=== PATIENT | female | born 1975 | race Caucasian/White ===

== ENCOUNTER 2020-01-05 11:57 | Emergency (ER) | payer MEDICAID, SELFPAY ==
[2020-01-05] VITALS (7 sets, daily range): BP systolic 143–168; BP diastolic 92–112; PULSE 82–94; RESP 16–27; TEMP 36.7; O2SAT 94–97; BMI 36.2
--- NOTE | 2020-01-05 12:12 | ECG_ITS ---
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 Measurements Intervals [place] Rate: 85 P: 43 OR: 160 QRS: -59 QRSD: 145 T: 183 QT: 393 QTc: 468 Interpretive Statements SINUS RHYTHM POSSIBLE LEFT ATRIAL ENLARGEMENT [-0.1mV P WAVE IN V1/V2] LEFT AXIS DEVIATION [QRS AXIS < -30] RIGHT BUNDLE BRANCH BLOCK [120+ ms QRS DURATION, UPRIGHT V1, 40+ ms S IN I/aVL/V4/V5/V6] MODERATE T-WAVE ABNORMALITY, CONSIDER ANTEROLATERAL ISCHEMIA [-0.1+ mV T WAVE IN V3-V6] MODERATE T-WAVE ABNORMALITY, CONSIDER INFERIOR ISCHEMIA [-0.1+ mV T WAVE IN II/aVF] Compared to ECG 10/24/2018 16:19:23 Left-axis deviation now present T-wave abnormality now present Electronically Signed On 01-05-2020 16:06:37 CDT by Garrison Alanis M.D. [id number] f
--- NOTE | 2020-01-05 12:12 | XR_ITS ---
WS: [id number] Portable AP upright chest, 01/05/2020 Clinical Data: chest pain Comparison: Portable chest, 10/24/2018. Findings: No nodules, masses or effusions are seen. The heart is enlarged. The pulmonary vascularity is not increased. No pneumonia or pneumothorax is seen. The right diaphragm is elevated. XR/XR chest 1V portable [id number] Impression: Cardiomegaly.
--- NOTE | 2020-01-05 12:16 | W.ED.CHESTPA ---
HPI - Chest Pain General: Chief Complaint: Chest Pain Stated Complaint: chest pain Time Seen by Provider: 01/05/20 11:58 History of Present Illness: HPI narrative: 44-year-old male presents emergency room complaining of chest pain complains of left upper chest pain is been hurting for last 2 days. She has some nausea and couple episodes of vomiting and some dizziness associated with it no loss of consciousness. Does radiate up into her neck she denies any shortness of breath associated with it she is not noticed any exacerbating or relieving aspects of it. She went in and seen her primary care doctor today and they referred her to the emergency room. MD complaint: chest pain Onset (ago): day(s) (2) Timing of current episode: episodic and still present Prior episodes: Yes Onset: during rest Pain location: left chest Pain radiation: neck Severity: moderate Quality: tightness and aching Relieving factors: nothing Exacerbating factors: nothing Associated symptoms: Reports nausea and vomiting; Deny abdominal pain, diaphoresis, dyspnea, leg edema, palpitations, sense of impending doom, syncope or other Treatment prior to arrival: none Review of Systems Const: Denies: diaphoresis ENMT: Denies: throat pain, ear or mastoid pain, nasal discharge or nasal congestion Card: Denies: palpitations or syncope Resp: Denies: dyspnea GI: Reports: nausea and vomiting; Denies: abdominal pain : Denies: flank pain, difficulty voiding, dysuria, urinary frequency or urinary urgency Skin/Breast: Denies: rash or pruritus PFSH ED PFSH: Medical History (Updated 01/05/20 @ 14:44 by Markel Jimenez DO) Diabetes mellitus Hypertension Surgical History (Updated 01/05/20 @ 12:19 by Markel Jimenez DO) H/O dilation and curettage History of removal of laparoscopic gastric banding device Hx of laparoscopic adjustable gastric banding Previous section Social History (Updated 01/05/20 @ 12:20 by Markel Jimenez DO) Smoking and tobacco status: never smoked Alcohol intake: never Physical Exam Const: COMMON NORMALS: no acute distress GENERAL APPEARANCE: cooperative and comfortable ORIENTATION/CONSCIOUSNESS: Yes awake, Yes oriented to person, Yes oriented to place and Yes oriented to time HENMT: COMMON NORMALS: normocephalic, atraumatic and hearing grossly normal bilaterally HEAD & SCALP: normocephalic and atraumatic Eye: COMMON NORMALS: Equal, round and reactive pupils present, EOMs intact bilaterally, conjunctivae normal and no scleral icterus CONJUNCTIVA: Yes conjunctivae normal PUPIL: Yes Equal, round and reactive pupils present Neck/C-Spine: COMMON NORMALS: full ROM, no lymphadenopathy, supple and no JVD Lymph: LYMPHATIC: no lymphadenopathy noted and no lymphedema noted Chest: CHEST: Yes tenderness (Chest pain reproducible along the sternal borders) Resp: COMMON NORMALS: normal respiratory effort, No retractions, No use of accessory muscles and clear to auscultation bilaterally AUSCULTATION: clear to auscultation bilaterally Cardio: COMMON NORMALS: no JVD, regular rate, regular rhythm and No murmurs present (Cardio) RATE: regular rate RHYTHM: regular rhythm GI: COMMON NORMALS: Soft to palpation and No hepatosplenomegaly present AUSCULTATION: Yes normoactive bowel sounds PALPATION: Yes Soft to palpation, No Tenderness to palpation present (GI), No Guarding due to palpation present (GI) and Yes No hepatosplenomegaly present Extremity: COMMON NORMALS: normal to inspection, capillary refill normal, no clubbing, cyanosis or edema, no calf tenderness and no pedal edema Neuro: SENSORIUM/ORIENTATION: Yes oriented to person, Yes oriented to place and Yes oriented to time Skin: COMMON NORMALS: no rashes or lesions noted GENERAL SKIN EXAM: no rashes or lesions noted Course Vital Signs: Vital signs: Vital Signs Temperature 98.1 F 01/05/20 11:59 Pulse Rate 94 01/05/20 15:13 Respiratory Rate 17 01/05/20 15:13 Blood Pressure 164/110 01/05/20 15:13 Pulse Oximetry 97 01/05/20 15:13 MDM - Chest Pain MDM Narrative: Medical decision making narrative: Chest pain is reproducible with change in position and palpation we will go ahead and discharge her home set up for outpatient stress test asked her to take aspirin daily if she has recurrent symptoms return to the emergency room Lab Data: Labs: Lab Results 01/05/20 01/05/20 01/05/20 Range/Units 12:17 12:17 12:17 WBC 8.2 (4.0-10.0) 10^3/ uL RBC 4.93 (4.1-5.3) 10^6/u L Hgb 15.0 (11.5-15.3) g/dL Hct 45.9 (37.0-47.0) % MCV 93.1 (81-99) fL MCH 30.4 (28.0-34.0) pg MCHC 32.7 (30.0-36.0) g/dL RDW 11.8 L (12.1-15.1) % Plt Count 279 (130-400) 10^3/c mm MPV 9.9 (7.4-10.4) fL Neut % (Auto) 62.1 % Lymph % (Auto) 30.4 % [place] % (Auto) 5.4 % Eos % (Auto) 0.9 % Baso % (Auto) 0.7 % Neut # (Auto) 5.07 (1.8-7.7) 10^3/u L Lymph # (Auto) 2.5 (0.8-4.8) 10^3/u L [place] # (Auto) 0.4 (0.2-0.9) 10^3/u L Eos # (Auto) 0.1 (0.0-0.8) 10^3/u L Baso # (Auto) 0.1 (0.0-0.1) 10^3/u L Nucleated RBC % (a uto) 0 % Nucleated RBCs # 0.0 /100WBC Sodium 134 L (136-145) mmol/L Potassium 4.8 (3.5-5.1) mmol/L Chloride 96 L (98-107) mmol/L Carbon Dioxide 30 H (22-29) mmol/L Anion Gap 12.8 (5-19) BUN 7 (6-20) mg/dL Creatinine 0.6 (0.5-0.9) mg/dL GFR Calculation 109.6 (90-130) mL/min Glucose 358 H (65-115) mg/dL POC Glucose (70-110) mg/dL Calculated Osmolal ity 288 (285-295) mOsm/k g Calcium 8.8 (8.5-10.5) mg/dL Total Bilirubin 0.2 (0.15-1.2) mg/dL AST 13 (0-32) U/L ALT 23 (0-33) U/L Alkaline Phosphata se 68 (35-105) IU/L Troponin T Baselin e 8 (0-10) ng/L Troponin T 120 Min [place] (0-10) ng/L Delta Troponin T (0-10) ABS# Total Protein 6.1 L (6.6-8.7) g/dL Albumin 3.4 L (3.5-5.2) g/dL Globulin 2.7 (1.3-4.6) g/dL 01/05/20 01/05/20 Range/Units 14:15 14:19 WBC (4.0-10.0) 10^3/ uL RBC (4.1-5.3) 10^6/u L Hgb (11.5-15.3) g/dL Hct (37.0-47.0) % MCV (81-99) fL MCH (28.0-34.0) pg MCHC (30.0-36.0) g/dL RDW (12.1-15.1) % Plt Count (130-400) 10^3/c mm MPV (7.4-10.4) fL Neut % (Auto) % Lymph % (Auto) % [place] % (Auto) % Eos % (Auto) % Baso % (Auto) % Neut # (Auto) (1.8-7.7) 10^3/u L Lymph # (Auto) (0.8-4.8) 10^3/u L [place] # (Auto) (0.2-0.9) 10^3/u L Eos # (Auto) (0.0-0.8) 10^3/u L Baso # (Auto) (0.0-0.1) 10^3/u L Nucleated RBC % (a uto) % Nucleated RBCs # /100WBC Sodium (136-145) mmol/L Potassium (3.5-5.1) mmol/L Chloride (98-107) mmol/L Carbon Dioxide (22-29) mmol/L Anion Gap (5-19) BUN (6-20) mg/dL Creatinine (0.5-0.9) mg/dL GFR Calculation (90-130) mL/min Glucose (65-115) mg/dL POC Glucose 301 (70-110) mg/dL Calculated Osmolal ity (285-295) mOsm/k g Calcium (8.5-10.5) mg/dL Total Bilirubin (0.15-1.2) mg/dL AST (0-32) U/L ALT (0-33) U/L Alkaline Phosphata se (35-105) IU/L Troponin T Baselin e (0-10) ng/L Troponin T 120 Min [place] 9.47 (0-10) ng/L Delta Troponin T 1.47 (0-10) ABS# Total Protein (6.6-8.7) g/dL Albumin (3.5-5.2) g/dL Globulin (1.3-4.6) g/dL Discharge Plan Discharge Patient Disposition: Home Clinical Impression: Atypical chest pain Condition: Stable Prescriptions: New aspirin 81 mg tablet,chewable 81 mg PO DAILY Qty: 30 RF: 0 No Action ibuprofen 800 mg tablet 800 mg PO BID PRN (Reason: Pain) RF: 0 sulfamethoxazole-trimethoprim 800-160 mg tablet 1 tab PO BID RF: 0 spironolactone 25 mg tablet 25 mg PO DAILY RF: 0 lisinopril 10 mg tablet 10 mg PO DAILY RF: 0 omeprazole 20 mg capsule,delayed release(DR/EC) 20 mg PO DAILY RF: 0 buspirone 15 mg tablet 15 mg PO TID PRN (Reason: Anxiety) RF: 0 metformin 750 mg tablet extended release 24 hr 750 mg PO BID RF: 0 Viibryd 40 mg tablet 10 mg PO DAILY RF: 0 Farxiga 10 mg tablet 10 mg PO DAILY RF: 0 Discharge Orders: Discharge Order (Routine); Ordered 01/05/20 Ordered By: Markel Jimenez Referrals: Yaa Reed DO [Primary Care Provider] - Discharge Diet: Usual diet Discharge Activity: Limit activity as instructed Activity Restrictions/Additional Instructions: His management will call to set up a sestamibi stress test Discharge Date/Time: 01/05/20 15:14 Coding Level of Care Code ED Loom Tuner for Nu Fwd Exam Comprehensive
[2020-01-05 12:27] LABS: Basophils # 0.1 10^3/uL (0.0-0.1); Basophils % 0.7 %; Eosinophils # 0.1 10^3/uL (0.0-0.8); Eosinophils % 0.9 %; Hematocrit 45.9 % (37.0-47.0); Lymphocytes # 2.5 10^3/uL (0.8-4.8); Lymphocytes % 30.4 %; Mean Corpuscular HGB Conc 32.7 g/dL (30.0-36.0); Mean Corpuscular Hemoglobin 30.4 pg (28.0-34.0); Mean Corpuscular Volume 93.1 fL (81-99); Mean Platelet Volume 9.9 fL (7.4-10.4); Monocytes # 0.4 10^3/uL (0.2-0.9); Monocytes % 5.4 %; Neutrophils # 5.07 10^3/uL (1.8-7.7); Neutrophils % 62.1 %; Nucleated Red Blood Cells % 0 %; Platelet Count 279 10^3/cmm (130-400); Red Blood Count 4.93 10^6/uL (4.1-5.3); Red Cell Distribution Width 11.8 % (12.1-15.1); White Blood Count 8.2 10^3/uL (4.0-10.0)
[2020-01-05 12:47] LABS: Alanine Aminotransferase 23 U/L (0-33); Albumin Level 3.4 g/dL (3.5-5.2); Alkaline Phosphatase 68 IU/L (35-105); Aspartate Amino Transferase 13 U/L (0-32); Blood Urea Nitrogen 7 mg/dL (6-20); Calcium 8.8 mg/dL (8.5-10.5); Carbon Dioxide 30 mmol/L (22-29); Chloride 96 mmol/L (98-107); Globulin 2.7 g/dL (1.3-4.6); Glomerular Filtration Rate 109.6 mL/min (90-130); Glucose 358 mg/dL (65-115); Osmolality Calculated 288 mOsm/kg (285-295); Sodium 134 mmol/L (136-145); Total Bilirubin 0.2 mg/dL (0.15-1.2); Total Protein 6.1 g/dL (6.6-8.7)
[2020-01-05 12:48] LABS: Troponin(5th) Baseline 8 ng/L (0-10)
[2020-01-05 12:54] LABS: Anion Gap 12.8 (5-19); Potassium 4.8 mmol/L (3.5-5.1)
--- NOTE | 2020-01-05 14:12 | ECG_ITS ---
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 Measurements Intervals [place] Rate: 75 P: 55 [place]: 160 QRS: -56 QRSD: 147 T: 192 QT: 440 QTc: 493 Interpretive Statements SINUS RHYTHM LEFT AXIS DEVIATION [QRS AXIS < -30] RIGHT BUNDLE BRANCH BLOCK [120+ ms QRS DURATION, UPRIGHT V1, 40+ ms S IN I/aVL/V4/V5/V6] MODERATE T-WAVE ABNORMALITY, CONSIDER LATERAL ISCHEMIA [-0.1+ mV T WAVE IN I/aVL/V5/V6] MODERATE T-WAVE ABNORMALITY, CONSIDER INFERIOR ISCHEMIA [-0.1+ mV T WAVE IN II/aVF] Compared to ECG 01/05/2020 12:03:33 No significant changes Electronically Signed On 01-05-2020 16:26:28 CDT by Garrison Alanis M.D. [id number] jain
[2020-01-05 14:24] LABS: Glucose Point of Care 301 mg/dL (70-110)
[2020-01-05 14:42] LABS: Troponin 5 2HR 9.47 ng/L (0-10); Troponin 5 2HR Delta 1.47 ABS# (0-10)
--- NOTE | 2020-01-05 17:38 | PC.NURSE ---
Read and agree with assessment.
--- NOTE | 2020-01-06 13:20 | DCPLANNER ---
major account manager had message to schedule an outpatient stress test for patient. major account manager faxed order to centralized scheduling. major account manager will call for appointment information.
--- NOTE | 2020-01-20 14:01 | DCPLANNER ---
Patient has a outpatient stress test scheduled for Monday, February 03, 2020 at 10:45, centralized scheduling will call patient with appointment information.
--- NOTE | 2020-02-07 15:33 | DCPLANNER ---
Patient had a follow up appointment scheduled for 02.03.20 - patient did not attend appointment.
== END 2020-01-05 15:14 | disposition home or self-care (01) ==
PROVIDERS: Emergency Provider Family Medicine; PCP Family Medicine
DX: R07.89 Other chest pain (principal); E11.9 Type 2 diabetes mellitus without complications; I10 Essential (primary) hypertension
CPT/HCPCS: 12345; 36415; 36416; 71045; 80053; 82962; 84484; 85025; 93005; 99283; 99284

== ENCOUNTER 2020-08-24 16:40 | Emergency (ER) | payer MEDICAID, SELFPAY ==
[2020-08-24 16:57] VITALS: BP 202/113; PULSE 93; RESP 18; TEMP 36.6; O2SAT 98; BMI 32.1
--- NOTE | 2020-08-24 18:00 | W.ED.GENADLT ---
HPI - General Adult General: Chief complaint: General Medical Stated complaint: HIGH BS/ HIGH BP Time Seen by Provider: 08/24/20 18:00 Source: patient Mode of arrival: ambulatory Limitations: no limitations History of Present Illness: HPI narrative: Patient is a 45-year-old female who presents to ED today with multiple medical complaints. Patient tells me she initially went to her PCP office today for complaints of possible yeast infection. She tells me she is having vaginal itching and burning (at some point she states she was given antibiotics for some sort of infection (she thinks BV) but her Medicaid wouldn't cover so she never filled them). She states there is a concern for STDs as she has had at least 3 new sexual partners over the past month or so. She tells me when she got to their office they checked her blood sugar which was over 400 and her BP was 230s/100s so she was sent to the ED for further evaluation. Upon my exam patient complains of having chest pain over the past few days. She tells me she has not been taking any of her blood pressure diabetic medications because I forget . Patient is a methamphetamine user. She seems very disinterested in being in the ED. She lays in bed with her eyes closed looking away from me. She gives very vague answers to the majority of my questions. Onset (ago): unknown Associated symptoms: Reports chest pain; Deny confusion, dyspnea, headache(s), malaise, nausea, rash, palpitations, syncope or vomiting Review of Systems Const: Denies: fever(s), chills, body aches, fatigue or malaise Eyes: Denies: change in vision Card: Reports: chest pain; Denies: palpitations, irregular heart rhythm, edema, swelling of feet/ankles, lightheadedness, syncope, pre-syncope, dyspnea on exertion, orthopnea or leg pain with exertion Resp: Denies: dyspnea, productive cough or chest congestion GI: Denies: abdominal pain, nausea, vomiting or diarrhea : Reports: genital pruritis and vaginal odor; Denies: flank pain, difficulty voiding, dysuria, urinary frequency, urinary urgency, urinary hesitancy, hematuria, genital lesions, vaginal bleeding or vaginal discharge Musc: Denies: neck pain or back pain Skin/Breast: Denies: rash Neuro: Denies: headache(s), numbness in extremities, weakness in extremities, sensory changes, dizziness or confusion PFS ED PFSH: Medical History (Updated 08/24/20 @ 22:44 by CHAD Fernandez) Diabetes mellitus Hypertension Surgical History (Updated 01/05/20 @ 12:19 by Markel Jimenez DO) H/O dilation and curettage History of removal of laparoscopic gastric banding device Hx of laparoscopic adjustable gastric banding Previous section Social History (Updated 01/05/20 @ 12:20 by Markel Jimenez DO) Smoking and tobacco status: never smoked Alcohol intake: never Physical Exam Const: COMMON NORMALS: no acute distress, patient oriented x3, no limitations and alert GENERAL APPEARANCE: cooperative and disheveled ORIENTATION/CONSCIOUSNESS: Yes awake, Yes oriented to person, Yes oriented to place and Yes oriented to time HENMT: COMMON NORMALS: normocephalic and atraumatic HEAD & SCALP: normocephalic and atraumatic Resp: COMMON NORMALS: normal respiratory effort and clear to auscultation bilaterally AUSCULTATION: clear to auscultation bilaterally Cardio: COMMON NORMALS: regular rate and regular rhythm RATE: regular rate RHYTHM: regular rhythm GI: COMMON NORMALS: Normal to inspection, nondistended, normoactive bowel sounds present, Soft to palpation, non-tender, No hepatosplenomegaly present and no masses PALPATION: Yes Soft to palpation and Yes No hepatosplenomegaly present : COMMON NORMALS: Yes no CVA tenderness, Yes normal bimanual exam and Yes No adnexal tenderness BLADDER/KIDNEY EXAM: Yes no CVA tenderness EXTERNAL FEMALE EXAM: Yes other (several small ulcerations to R labia minoral folds and one near introitus) SPECULUM EXAM - VAGINA: Yes vaginal bleeding Amount: scant, No tissue present in vagina, No tenderness and No Vaginal discharge present SPECULUM EXAM - CERVIX: Yes Cervical os closed and Yes Other cervical findings present (normal appearing cervix ) BIMANUAL EXAM - VAGINA & UTERUS: Yes normal bimanual exam OB/EXTERNAL & SPECULUM: no tissue noted in vagina Back/Pelvis: COMMON NORMALS: no CVA tenderness Extremity: COMMON NORMALS: capillary refill normal, no joint enlargement, no clubbing, cyanosis or edema, no calf tenderness and no pedal edema Neuro: OSCAR COMA SCALE: document GCS findings [place] coma scale eye opening: Spontaneous [place] coma scale verbal response: Orientated [place] coma scale motor response: Obey commands Oscar coma scale total score: 15 COMMON NORMALS: patient oriented x3 SENSORIUM/ORIENTATION: Yes alert, Yes oriented to person, Yes oriented to place and Yes oriented to time SPEECH: speech normal GAIT: Yes Normal gait present Psych: COMMON NORMALS: speech normal APPEARANCE: Yes disheveled ACTIVITY/MOTOR BEHAVIOR: Yes Avoids eye contact (attititude/behavior) SPEECH: Yes normal speech Skin: COMMON NORMALS: no rashes or lesions noted GENERAL SKIN EXAM: no rashes or lesions noted Course Vital Signs: Vital signs: Vital Signs Temperature 97.8 F 08/24/20 16:57 Pulse Rate 100 08/24/20 21:28 Respiratory Rate 17 08/24/20 21:28 Blood Pressure 161/89 08/24/20 21:28 Pulse Oximetry 100 08/24/20 21:28 MDM - General Adult MDM Narrative: Medical decision making narrative: Patient's blood pressure is down after her daily dose of lisinopril and one dose of PO hydralazine. Her blood sugars are much improved after fluids and insulin. Patient admittedly does not take her medications at home. Patient was complaining of vaginal itching and burning. She has several ulcerative lesions to her genitals consistent with HSV. She has mentioned that she has been on antiviral medication for something like that previously so I do not think this is a primary infection. Wet prep is positive for bacterial vaginosis. She stated earlier her Medicaid would not cover a prescription for what I presume was Flagyl therefore she did not fill. I do not think she would fill a prescription if I wrote one today therefore she was given 2g Flagyl here even though this therapy has fallen out of favor due to decreased efficacy. Pelvic exam/cervical findings not consistent with gonorrhea/chlamydia so she was not given treatment for this. Patient had also complained of some chest pain. Her baseline troponin was normal. EKG shows no ischemic findings. CXR is normal. Discussed patient needs to follow-up with her primary care provider. Return to ED precautions given. Lab Data: Labs: Lab Results 08/24/20 08/24/20 08/24/20 Range/Units 19:16 19:16 19:16 WBC 8.6 (4.0-10.0) 10^3/ uL RBC 5.90 H (4.1-5.3) 10^6/u L Hgb 18.1 H (11.5-15.3) g/dL Hct 53.1 H (37.0-47.0) % MCV 90.0 (81-99) fL MCH 30.7 (28.0-34.0) pg MCHC 34.1 (30.0-36.0) g/dL RDW 11.3 L (12.1-15.1) % Plt Count 322 (130-400) 10^3/c mm MPV 9.5 (7.4-10.4) fL Neut % (Auto) 61.9 % Lymph % (Auto) 30.5 % [place] % (Auto) 5.8 % Eos % (Auto) 0.6 % Baso % (Auto) 0.7 % Neut # (Auto) 5.34 (1.8-7.7) 10^3/u L Lymph # (Auto) 2.6 (0.8-4.8) 10^3/u L [place] # (Auto) 0.5 (0.2-0.9) 10^3/u L Eos # (Auto) 0.1 (0.0-0.8) 10^3/u L Baso # (Auto) 0.1 (0.0-0.1) 10^3/u L Nucleated RBC % (a uto) 0 % Nucleated RBCs # 0.0 /100WBC Sodium 132 L (136-145) mmol/L Potassium 3.8 (3.5-5.1) mmol/L Chloride 94 L (98-107) mmol/L Carbon Dioxide 27 (22-29) mmol/L Anion Gap 14.8 (5-19) BUN 4 L (6-20) mg/dL Creatinine 0.5 (0.5-0.9) mg/dL GFR Calculation 134.7 H (90-130) mL/min Glucose 291 H (65-115) mg/dL POC Glucose (70-110) mg/dL Calculated Osmolal ity 282 L (285-295) mOsm/k g Calcium 8.7 (8.5-10.5) mg/dL Total Bilirubin 0.3 (0.15-1.2) mg/dL AST 13 (0-32) U/L ALT 23 (0-33) U/L Alkaline Phosphata se 103 (35-105) IU/L Troponin T Baselin e (0-10) ng/L Total Protein 7.5 (6.6-8.7) g/dL Albumin 3.9 (3.5-5.2) g/dL Globulin 3.6 (1.3-4.6) g/dL Urine Color (Yellow) Urine Appearance (CLEAR) Urine pH (5-7) Ur Specific Gravit y (1.005-1.030) Urine Protein (Negative) Urine Glucose (UA) (Normal) Urine Ketones (Negative) Urine Blood (Negative) Urine Nitrate (Negative) Urine Bilirubin (Negative) Urine Urobilinogen (Negative) mg/dL Ur Leukocyte Cici ase (Negative) Urine RBC (0-2) /hpf Urine WBC (0-5) /hpf Ur Squamous Epith Cells (0-5) /hpf Amorphous Sediment Urine Bacteria (NONE) /hpf Urine Opiates Scre en (Negative) ng/mL Ur Barbiturates Sc reen (Negative) ng/mL Ur Phencyclidine S crn (Negative) ng/mL Ur Amphetamines Sc reen (Negative) ng/mL U Benzodiazepines Scrn (Negative) ng/mL Urine Cocaine Scre en (Negative) ng/mL U Marijuana (THC) Screen (Negative) ng/mL Serum Ketones Negative (Negative) 08/24/20 08/24/20 08/24/20 Range/Units 19:16 22:03 22:23 WBC (4.0-10.0) 10^3/ uL RBC (4.1-5.3) 10^6/u L Hgb (11.5-15.3) g/dL Hct (37.0-47.0) % MCV (81-99) fL MCH (28.0-34.0) pg MCHC (30.0-36.0) g/dL RDW (12.1-15.1) % Plt Count (130-400) 10^3/c mm MPV (7.4-10.4) fL Neut % (Auto) % Lymph % (Auto) % [place] % (Auto) % Eos % (Auto) % Baso % (Auto) % Neut # (Auto) (1.8-7.7) 10^3/u L Lymph # (Auto) (0.8-4.8) 10^3/u L [place] # (Auto) (0.2-0.9) 10^3/u L Eos # (Auto) (0.0-0.8) 10^3/u L Baso # (Auto) (0.0-0.1) 10^3/u L Nucleated RBC % (a uto) % Nucleated RBCs # /100WBC Sodium (136-145) mmol/L Potassium (3.5-5.1) mmol/L Chloride (98-107) mmol/L Carbon Dioxide (22-29) mmol/L Anion Gap (5-19) BUN (6-20) mg/dL Creatinine (0.5-0.9) mg/dL GFR Calculation (90-130) mL/min Glucose (65-115) mg/dL POC Glucose 143 H (70-110) mg/dL Calculated Osmolal ity (285-295) mOsm/k g Calcium (8.5-10.5) mg/dL Total Bilirubin (0.15-1.2) mg/dL AST (0-32) U/L ALT (0-33) U/L Alkaline Phosphata se (35-105) IU/L Troponin T Baselin e 10 (0-10) ng/L Total Protein (6.6-8.7) g/dL Albumin (3.5-5.2) g/dL Globulin (1.3-4.6) g/dL Urine Color Yellow (Yellow) Urine Appearance Clear (CLEAR) Urine pH 7 (5-7) Ur Specific Gravit y 1.005 (1.005-1.030) Urine Protein Neg (Negative) Urine Glucose (UA) 4+ H (Normal) Urine Ketones Negative (Negative) Urine Blood 3+ H (Negative) Urine Nitrate Negative (Negative) Urine Bilirubin Neg (Negative) Urine Urobilinogen Norm (Negative) mg/dL Ur Leukocyte Cici ase Negative (Negative) Urine RBC 5-10 H (0-2) /hpf Urine WBC 5-10 H (0-5) /hpf Ur Squamous Epith Cells 10-15 H (0-5) /hpf Amorphous Sediment Not Reportable Urine Bacteria 1+ H (NONE) /hpf Urine Opiates Scre en (Negative) ng/mL Ur Barbiturates Sc reen (Negative) ng/mL Ur Phencyclidine S crn (Negative) ng/mL Ur Amphetamines Sc reen (Negative) ng/mL U Benzodiazepines Scrn (Negative) ng/mL Urine Cocaine Scre en (Negative) ng/mL U Marijuana (THC) Screen (Negative) ng/mL Serum Ketones (Negative) 08/24/20 Range/Units 22:23 WBC (4.0-10.0) 10^3/ uL RBC (4.1-5.3) 10^6/u L Hgb (11.5-15.3) g/dL Hct (37.0-47.0) % MCV (81-99) fL MCH (28.0-34.0) pg MCHC (30.0-36.0) g/dL RDW (12.1-15.1) % Plt Count (130-400) 10^3/c mm MPV (7.4-10.4) fL Neut % (Auto) % Lymph % (Auto) % [place] % (Auto) % Eos % (Auto) % Baso % (Auto) % Neut # (Auto) (1.8-7.7) 10^3/u L Lymph # (Auto) (0.8-4.8) 10^3/u L [place] # (Auto) (0.2-0.9) 10^3/u L Eos # (Auto) (0.0-0.8) 10^3/u L Baso # (Auto) (0.0-0.1) 10^3/u L Nucleated RBC % (a uto) % Nucleated RBCs # /100WBC Sodium (136-145) mmol/L Potassium (3.5-5.1) mmol/L Chloride (98-107) mmol/L Carbon Dioxide (22-29) mmol/L Anion Gap (5-19) BUN (6-20) mg/dL Creatinine (0.5-0.9) mg/dL GFR Calculation (90-130) mL/min Glucose (65-115) mg/dL POC Glucose (70-110) mg/dL Calculated Osmolal ity (285-295) mOsm/k g Calcium (8.5-10.5) mg/dL Total Bilirubin (0.15-1.2) mg/dL AST (0-32) U/L ALT (0-33) U/L Alkaline Phosphata se (35-105) IU/L Troponin T Baselin e (0-10) ng/L Total Protein (6.6-8.7) g/dL Albumin (3.5-5.2) g/dL Globulin (1.3-4.6) g/dL Urine Color (Yellow) Urine Appearance (CLEAR) Urine pH (5-7) Ur Specific Gravit y (1.005-1.030) Urine Protein (Negative) Urine Glucose (UA) (Normal) Urine Ketones (Negative) Urine Blood (Negative) Urine Nitrate (Negative) Urine Bilirubin (Negative) Urine Urobilinogen (Negative) mg/dL Ur Leukocyte Cici ase (Negative) Urine RBC (0-2) /hpf Urine WBC (0-5) /hpf Ur Squamous Epith Cells (0-5) /hpf Amorphous Sediment Urine Bacteria (NONE) /hpf Urine Opiates Scre en Negative (Negative) ng/mL Ur Barbiturates Sc reen Negative (Negative) ng/mL Ur Phencyclidine S crn Negative (Negative) ng/mL Ur Amphetamines Sc reen Positive H (Negative) ng/mL U Benzodiazepines Scrn Negative (Negative) ng/mL Urine Cocaine Scre en Negative (Negative) ng/mL U Marijuana (THC) Screen Negative (Negative) ng/mL Serum Ketones (Negative) Imaging Data^: CXR: Radiologist's impression: [address] [address] XRay Report Signed Patient: Benny Lin #: [id number] : 1975Acct#:[id number] Age/Sex: 45 / FADM Date: 08/24/20 Loc: ERRoom/Bed: Attending Dr: Ordering Provider/Ordering MD: Anne Ocampo Date of Service: 08/24/20 Procedure(s): XR chest 1V portable [id number] Accession Number(s): [id number] Report Number: [id number] PROCEDURE INFORMATION: Exam: XR Chest Exam date and time: 08/24/2020 6:18 PM Age: 45 years old Clinical indication: Chest pain TECHNIQUE: Imaging protocol: XR of the chest. Views: 1 view. COMPARISON: CR XR chest 1V portable [id number] 01/05/2020 12:37 PM FINDINGS: Lungs: Well inflated and clear. Pleural spaces: Unremarkable. No pleural effusion. No pneumothorax. Heart/Mediastinum: The cardiac shadow is normal in size. Diaphragm: Mild elevation of the right hemidiaphragm, similar to the prior exam. Bones/joints: No acute abnormality. XR/XR chest 1V portable [id number] IMPRESSION: No acute findings. Dictated By:Mike Anders Signed By:Mike AndersSignharvey Date/Time:08/24/201844 DD/ 45 Discharge Plan Discharge Patient Disposition: Home Clinical Impression: Non compliance w medication regimen, Bacterial vaginosis, Methamphetamine abuse Genital herpes Qualifiers: Herpes simplex infection site: vulvovaginitis Qualified Code(s): A60.04 - Herpesviral vulvovaginitis Hypertension Qualifiers: Hypertension type: essential hypertension Qualified Code(s): I10 - Essential (primary) hypertension Uncontrolled diabetes mellitus Qualifiers: Diabetes mellitus type: type 2 Glycemic state: with hyperglycemia Qualified Code(s): E11.65 - Type 2 diabetes mellitus with hyperglycemia Condition: Stable Prescriptions: New valacyclovir 1 gram tablet 1,000 mg PO DAILY 5 Days Qty: 5 RF: 0 No Action gabapentin 100 mg capsule 100 mg PO BID RF: 0 ibuprofen 800 mg tablet 800 mg PO BID PRN (Reason: Pain) RF: 0 spironolactone 25 mg tablet 25 mg PO DAILY RF: 0 lisinopril 10 mg tablet 10 mg PO DAILY RF: 0 omeprazole 20 mg capsule,delayed release(DR/EC) 20 mg PO DAILY RF: 0 buspirone 15 mg tablet 15 mg PO TID PRN (Reason: Anxiety) RF: 0 metformin 750 mg tablet extended release 24 hr 750 mg PO BID RF: 0 Viibryd 40 mg tablet 10 mg PO DAILY RF: 0 Farxiga 10 mg tablet 10 mg PO DAILY RF: 0 aspirin 81 mg tablet,chewable 81 mg PO DAILY Qty: 30 RF: 0 Discharge Orders: Discharge ED (Routine); Ordered 08/24/20 Ordered By: Anne Ocampo Referrals: Keyanna Perez DO [Primary Care Provider] - Activity Restrictions/Additional Instructions: You have stated you have plenty of medication left/refills to treat your hypertension and diabetes. You need to get better at taking these as prescribed. You may set an alarm or write yourself a note to help you remember. You have been given treatment for bacterial vaginosis today. You are also diagnosed with genital herpes. You will be placed on antiviral medication for this. You need to notify partners of this diagnosis so they may get treated/tested. 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
--- NOTE | 2020-08-24 18:12 | ECG_ITS ---
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 Measurements Intervals [place] Rate: 87 P: 52 RI: 163 QRS: -71 QRSD: 153 T: 6 QT: 409 QTc: 493 Interpretive Statements SINUS RHYTHM POSSIBLE LEFT ATRIAL ENLARGEMENT [-0.1mV P WAVE IN V1/V2] RIGHT BUNDLE BRANCH BLOCK LEFT ANTERIOR FASCICULAR BLOCK [QRS AXIS <= -45, QR IN I, RS IN II] POSSIBLE ANTERIOR MYOCARDIAL INFARCTION [30 ms Q WAVE IN V3/V4, OR R < 0.2 mV IN V4], OF INDETERMINATE AGE Compared to ECG 01/05/2020 14:30:18 Left anterior fascicular block now present Myocardial infarct finding now present Left-axis deviation no longer present T-wave abnormality no longer present Possible ischemia no longer present Electronically Signed On 08-25-2020 5:14:08 CDT by Gladys Morrow M.D. [id number]
--- NOTE | 2020-08-24 18:12 | XRR_ITS ---
PROCEDURE INFORMATION: Exam: XR Chest Exam date and time: 08/24/2020 6:18 PM Age: 45 years old Clinical indication: Chest pain TECHNIQUE: Imaging protocol: XR of the chest. Views: 1 view. COMPARISON: CR XR chest 1V portable [id number] 01/05/2020 12:37 PM FINDINGS: Lungs: Well inflated and clear. Pleural spaces: Unremarkable. No pleural effusion. No pneumothorax. Heart/Mediastinum: The cardiac shadow is normal in size. Diaphragm: Mild elevation of the right hemidiaphragm, similar to the prior exam. Bones/joints: No acute abnormality. XR/XR chest 1V portable [id number] IMPRESSION: No acute findings.
[2020-08-24 19:29] LABS: Basophils # 0.1 10^3/uL (0.0-0.1); Basophils % 0.7 %; Eosinophils # 0.1 10^3/uL (0.0-0.8); Eosinophils % 0.6 %; Hematocrit 53.1 % (37.0-47.0); Hemoglobin 18.1 g/dL (11.5-15.3); Lymphocytes # 2.6 10^3/uL (0.8-4.8); Lymphocytes % 30.5 %; Mean Corpuscular HGB Conc 34.1 g/dL (30.0-36.0); Mean Corpuscular Hemoglobin 30.7 pg (28.0-34.0); Mean Platelet Volume 9.5 fL (7.4-10.4); Monocytes # 0.5 10^3/uL (0.2-0.9); Monocytes % 5.8 %; Neutrophils # 5.34 10^3/uL (1.8-7.7); Neutrophils % 61.9 %; Nucleated Red Blood Cells % 0 %; Platelet Count 322 10^3/cmm (130-400); Red Cell Distribution Width 11.3 % (12.1-15.1); White Blood Count 8.6 10^3/uL (4.0-10.0)
[2020-08-24] MEDS: sodium chloride 0.9% 1,000 ML 999 ML IV (19:33)
[2020-08-24] MEDS: lisinopril 10 mg Tablet PO (19:33)
[2020-08-24] MEDS: hyDRALAzine 10 mg Tablet PO (19:40)
[2020-08-24 19:41] LABS: Ketone (Acetest) Serum Negative (Negative)
[2020-08-24 19:44] LABS: Alanine Aminotransferase 23 U/L (0-33); Albumin Level 3.9 g/dL (3.5-5.2); Alkaline Phosphatase 103 IU/L (35-105); Anion Gap 14.8 (5-19); Aspartate Amino Transferase 13 U/L (0-32); Blood Urea Nitrogen 4 mg/dL (6-20); Calcium 8.7 mg/dL (8.5-10.5); Carbon Dioxide 27 mmol/L (22-29); Chloride 94 mmol/L (98-107); Creatinine Clr Calc Pharmacy 136.3274; Globulin 3.6 g/dL (1.3-4.6); Glomerular Filtration Rate 134.7 mL/min (90-130); Glucose 291 mg/dL (65-115); Osmolality Calculated 282 mOsm/kg (285-295); Potassium 3.8 mmol/L (3.5-5.1); Sodium 132 mmol/L (136-145); Total Bilirubin 0.3 mg/dL (0.15-1.2); Total Protein 7.5 g/dL (6.6-8.7)
[2020-08-24 19:46] LABS: Troponin(5th) Baseline 10 ng/L (0-10)
[2020-08-24 21:28] VITALS: BP 161/89; PULSE 100; RESP 17; O2SAT 100
[2020-08-24] MEDS: insulin regular-human 100 units/1 mL 10 UNIT IVP (21:33)
[2020-08-24 22:07] LABS: Glucose Point of Care 143 mg/dL (70-110)
[2020-08-24 22:33] LABS: Add Urine Microscopic? YES; Bilirubin Urine Neg (Negative); Blood Urine 3+ (Negative); Glucose Urine UA 4+ (Normal); Ketones Urine Negative (Negative); Leukocyte Esterase Urine Negative (Negative); Nitrate Urine Negative (Negative); Protein Urine Neg (Negative); Specific Gravity, Urine 1.005 (1.005-1.030); Urine Appearance Clear (CLEAR); Urine Color Yellow (Yellow); Urobilinogen Urine Norm (Negative); pH Urine 7 (5-7)
[2020-08-24 22:34] LABS: Bacteria Urine 1+ /hpf
[2020-08-24 22:37] LABS: Amphetamines Screen Urine Positive (Negative); Barbiturates Screen Urine Negative (Negative); Benzodiazepines Screen Urine Negative (Negative); Cocaine Screen Urine Negative (Negative); Opiate Screen Urine Negative (Negative); PCP Screen Urine Negative (Negative); THC Screen Urine Negative (Negative)
[2020-08-24] MEDS: metroNIDAZOLE 500 MG Tablet 2000 MG PO (23:02)
[2020-08-24 23:07] VITALS: BP 148/103; PULSE 102; RESP 18; O2SAT 97
--- NOTE | 2020-08-25 00:28 | W.ED.GENADLT ---
HPI - General Adult General: Chief complaint: General Medical Stated complaint: HIGH BS/ HIGH BP Time Seen by Provider: 08/24/20 18:00 Source: patient Mode of arrival: ambulatory Limitations: no limitations PFSH ED PFSH: Medical History (Updated 08/24/20 @ 22:44 by CHAD Fernandez) Diabetes mellitus Hypertension Surgical History (Updated 01/05/20 @ 12:19 by Markel Jimenez DO) H/O dilation and curettage History of removal of laparoscopic gastric banding device Hx of laparoscopic adjustable gastric banding Previous section Social History (Updated 01/05/20 @ 12:20 by Markel Jimenez DO) Smoking and tobacco status: never smoked Alcohol intake: never Procedures EJ/Peripheral Line Arm R: Time Out Performed: Yes Skin Cleansed in Sterile Fashion: Yes Size (gauge): 20 IV Secured and Dressing Applied: Yes Patient Tolerated Procedure: well Additional Comments: The patient has a history of intravenous drug abuse and has difficult access. Nurses had tried but were not successful with obtaining IV access. I performed an ultrasound-guided peripheral IV in the right arm with 1 attempt. Course Vital Signs: Vital signs: Vital Signs Temperature 97.8 F 08/24/20 16:57 Pulse Rate 102 H 08/24/20 23:07 Respiratory Rate 18 08/24/20 23:07 Blood Pressure 148/103 08/24/20 23:07 Pulse Oximetry 97 08/24/20 23:07 MDM - General Adult MDM Narrative: Medical decision making narrative: See the midlevel providers note for complete history and physical examination. I agree with her findings. Lab Data: Labs: Lab Results 08/24/20 08/24/20 08/24/20 Range/Units 19:16 19:16 19:16 WBC 8.6 (4.0-10.0) 10^3/ uL RBC 5.90 H (4.1-5.3) 10^6/u L Hgb 18.1 H (11.5-15.3) g/dL Hct 53.1 H (37.0-47.0) % MCV 90.0 (81-99) fL MCH 30.7 (28.0-34.0) pg MCHC 34.1 (30.0-36.0) g/dL RDW 11.3 L (12.1-15.1) % Plt Count 322 (130-400) 10^3/c mm MPV 9.5 (7.4-10.4) fL Neut % (Auto) 61.9 % Lymph % (Auto) 30.5 % [place] % (Auto) 5.8 % Eos % (Auto) 0.6 % Baso % (Auto) 0.7 % Neut # (Auto) 5.34 (1.8-7.7) 10^3/u L Lymph # (Auto) 2.6 (0.8-4.8) 10^3/u L [place] # (Auto) 0.5 (0.2-0.9) 10^3/u L Eos # (Auto) 0.1 (0.0-0.8) 10^3/u L Baso # (Auto) 0.1 (0.0-0.1) 10^3/u L Nucleated RBC % (a uto) 0 % Nucleated RBCs # 0.0 /100WBC Sodium 132 L (136-145) mmol/L Potassium 3.8 (3.5-5.1) mmol/L Chloride 94 L (98-107) mmol/L Carbon Dioxide 27 (22-29) mmol/L Anion Gap 14.8 (5-19) BUN 4 L (6-20) mg/dL Creatinine 0.5 (0.5-0.9) mg/dL GFR Calculation 134.7 H (90-130) mL/min Glucose 291 H (65-115) mg/dL POC Glucose (70-110) mg/dL Calculated Osmolal ity 282 L (285-295) mOsm/k g Calcium 8.7 (8.5-10.5) mg/dL Total Bilirubin 0.3 (0.15-1.2) mg/dL AST 13 (0-32) U/L ALT 23 (0-33) U/L Alkaline Phosphata se 103 (35-105) IU/L Troponin T Baselin e (0-10) ng/L Troponin T [address] [place] (0-10) ng/L Delta Troponin T (0-10) ABS# Total Protein 7.5 (6.6-8.7) g/dL Albumin 3.9 (3.5-5.2) g/dL Globulin 3.6 (1.3-4.6) g/dL Urine Color (Yellow) Urine Appearance (CLEAR) Urine pH (5-7) Ur Specific Gravit y (1.005-1.030) Urine Protein (Negative) Urine Glucose (UA) (Normal) Urine Ketones (Negative) Urine Blood (Negative) Urine Nitrate (Negative) Urine Bilirubin (Negative) Urine Urobilinogen (Negative) mg/dL Ur Leukocyte Cici ase (Negative) Urine RBC (0-2) /hpf Urine WBC (0-5) /hpf Ur Squamous Epith Cells (0-5) /hpf Amorphous Sediment Urine Bacteria (NONE) /hpf Urine Opiates Scre en (Negative) ng/mL Ur Barbiturates Sc reen (Negative) ng/mL Ur Phencyclidine S crn (Negative) ng/mL Ur Amphetamines Sc reen (Negative) ng/mL U Benzodiazepines Scrn (Negative) ng/mL Urine Cocaine Scre en (Negative) ng/mL U Marijuana (THC) Screen (Negative) ng/mL Serum Ketones Negative (Negative) 08/24/20 08/24/20 08/24/20 Range/Units 19:16 22:03 22:13 WBC (4.0-10.0) 10^3/ uL RBC (4.1-5.3) 10^6/u L Hgb (11.5-15.3) g/dL Hct (37.0-47.0) % MCV (81-99) fL MCH (28.0-34.0) pg MCHC (30.0-36.0) g/dL RDW (12.1-15.1) % Plt Count (130-400) 10^3/c mm MPV (7.4-10.4) fL Neut % (Auto) % Lymph % (Auto) % [place] % (Auto) % Eos % (Auto) % Baso % (Auto) % Neut # (Auto) (1.8-7.7) 10^3/u L Lymph # (Auto) (0.8-4.8) 10^3/u L [place] # (Auto) (0.2-0.9) 10^3/u L Eos # (Auto) (0.0-0.8) 10^3/u L Baso # (Auto) (0.0-0.1) 10^3/u L Nucleated RBC % (a uto) % Nucleated RBCs # /100WBC Sodium (136-145) mmol/L Potassium (3.5-5.1) mmol/L Chloride (98-107) mmol/L Carbon Dioxide (22-29) mmol/L Anion Gap (5-19) BUN (6-20) mg/dL Creatinine (0.5-0.9) mg/dL GFR Calculation (90-130) mL/min Glucose (65-115) mg/dL POC Glucose 143 H (70-110) mg/dL Calculated Osmolal ity (285-295) mOsm/k g Calcium (8.5-10.5) mg/dL Total Bilirubin (0.15-1.2) mg/dL AST (0-32) U/L ALT (0-33) U/L Alkaline Phosphata se (35-105) IU/L Troponin T Baselin e 10 (0-10) ng/L Troponin T [address] [place] 11.10 H (0-10) ng/L Delta Troponin T 1.10 (0-10) ABS# Total Protein (6.6-8.7) g/dL Albumin (3.5-5.2) g/dL Globulin (1.3-4.6) g/dL Urine Color (Yellow) Urine Appearance (CLEAR) Urine pH (5-7) Ur Specific Gravit y (1.005-1.030) Urine Protein (Negative) Urine Glucose (UA) (Normal) Urine Ketones (Negative) Urine Blood (Negative) Urine Nitrate (Negative) Urine Bilirubin (Negative) Urine Urobilinogen (Negative) mg/dL Ur Leukocyte Cici ase (Negative) Urine RBC (0-2) /hpf Urine WBC (0-5) /hpf Ur Squamous Epith Cells (0-5) /hpf Amorphous Sediment Urine Bacteria (NONE) /hpf Urine Opiates Scre en (Negative) ng/mL Ur Barbiturates Sc reen (Negative) ng/mL Ur Phencyclidine S crn (Negative) ng/mL Ur Amphetamines Sc reen (Negative) ng/mL U Benzodiazepines Scrn (Negative) ng/mL Urine Cocaine Scre en (Negative) ng/mL U Marijuana (THC) Screen (Negative) ng/mL Serum Ketones (Negative) 08/24/20 08/24/20 Range/Units 22:23 22:23 WBC (4.0-10.0) 10^3/ uL RBC (4.1-5.3) 10^6/u L Hgb (11.5-15.3) g/dL Hct (37.0-47.0) % MCV (81-99) fL MCH (28.0-34.0) pg MCHC (30.0-36.0) g/dL RDW (12.1-15.1) % Plt Count (130-400) 10^3/c mm MPV (7.4-10.4) fL Neut % (Auto) % Lymph % (Auto) % [place] % (Auto) % Eos % (Auto) % Baso % (Auto) % Neut # (Auto) (1.8-7.7) 10^3/u L Lymph # (Auto) (0.8-4.8) 10^3/u L [place] # (Auto) (0.2-0.9) 10^3/u L Eos # (Auto) (0.0-0.8) 10^3/u L Baso # (Auto) (0.0-0.1) 10^3/u L Nucleated RBC % (a uto) % Nucleated RBCs # /100WBC Sodium (136-145) mmol/L Potassium (3.5-5.1) mmol/L Chloride (98-107) mmol/L Carbon Dioxide (22-29) mmol/L Anion Gap (5-19) BUN (6-20) mg/dL Creatinine (0.5-0.9) mg/dL GFR Calculation (90-130) mL/min Glucose (65-115) mg/dL POC Glucose (70-110) mg/dL Calculated Osmolal ity (285-295) mOsm/k g Calcium (8.5-10.5) mg/dL Total Bilirubin (0.15-1.2) mg/dL AST (0-32) U/L ALT (0-33) U/L Alkaline Phosphata se (35-105) IU/L Troponin T Baselin e (0-10) ng/L Troponin T [address] [place] (0-10) ng/L Delta Troponin T (0-10) ABS# Total Protein (6.6-8.7) g/dL Albumin (3.5-5.2) g/dL Globulin (1.3-4.6) g/dL Urine Color Yellow (Yellow) Urine Appearance Clear (CLEAR) Urine pH 7 (5-7) Ur Specific Gravit y 1.005 (1.005-1.030) Urine Protein Neg (Negative) Urine Glucose (UA) 4+ H (Normal) Urine Ketones Negative (Negative) Urine Blood 3+ H (Negative) Urine Nitrate Negative (Negative) Urine Bilirubin Neg (Negative) Urine Urobilinogen Norm (Negative) mg/dL Ur Leukocyte Cici ase Negative (Negative) Urine RBC 5-10 H (0-2) /hpf Urine WBC 5-10 H (0-5) /hpf Ur Squamous Epith Cells 10-15 H (0-5) /hpf Amorphous Sediment Not Reportable Urine Bacteria 1+ H (NONE) /hpf Urine Opiates Scre en Negative (Negative) ng/mL Ur Barbiturates Sc reen Negative (Negative) ng/mL Ur Phencyclidine S crn Negative (Negative) ng/mL Ur Amphetamines Sc reen Positive H (Negative) ng/mL U Benzodiazepines Scrn Negative (Negative) ng/mL Urine Cocaine Scre en Negative (Negative) ng/mL U Marijuana (THC) Screen Negative (Negative) ng/mL Serum Ketones (Negative) Discharge Plan Discharge Patient Disposition: Home Clinical Impression: Non compliance w medication regimen, Bacterial vaginosis, Methamphetamine abuse Genital herpes Qualifiers: Herpes simplex infection site: vulvovaginitis Qualified Code(s): A60.04 - Herpesviral vulvovaginitis Hypertension Qualifiers: Hypertension type: essential hypertension Qualified Code(s): I10 - Essential (primary) hypertension Uncontrolled diabetes mellitus Qualifiers: Diabetes mellitus type: type 2 Glycemic state: with hyperglycemia Qualified Code(s): E11.65 - Type 2 diabetes mellitus with hyperglycemia Condition: Stable Prescriptions: New valacyclovir 1 gram tablet 1,000 mg PO DAILY 5 Days Qty: 5 RF: 0 No Action gabapentin 100 mg capsule 100 mg PO BID RF: 0 ibuprofen 800 mg tablet 800 mg PO BID PRN (Reason: Pain) RF: 0 spironolactone 25 mg tablet 25 mg PO DAILY RF: 0 lisinopril 10 mg tablet 10 mg PO DAILY RF: 0 omeprazole 20 mg capsule,delayed release(DR/EC) 20 mg PO DAILY RF: 0 buspirone 15 mg tablet 15 mg PO TID PRN (Reason: Anxiety) RF: 0 metformin 750 mg tablet extended release 24 hr 750 mg PO BID RF: 0 Viibryd 40 mg tablet 10 mg PO DAILY RF: 0 Farxiga 10 mg tablet 10 mg PO DAILY RF: 0 aspirin 81 mg tablet,chewable 81 mg PO DAILY Qty: 30 RF: 0 Discharge Orders: Discharge ED (Routine); Ordered 08/24/20 Ordered By: Anne Ocampo Referrals: Keyanna Perez DO [Primary Care Provider] - Activity Restrictions/Additional Instructions: You have stated you have plenty of medication left/refills to treat your hypertension and diabetes. You need to get better at taking these as prescribed. You may set an alarm or write yourself a note to help you remember. You have been given treatment for bacterial vaginosis today. You are also diagnosed with genital herpes. You will be placed on antiviral medication for this. You need to notify partners of this diagnosis so they may get treated/tested. 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
== END 2020-08-24 23:08 | disposition home or self-care (01) ==
PROVIDERS: Family Medicine; Emergency Provider Physician Assistant; PCP Family Medicine
DX: I10 Essential (primary) hypertension (principal); A60.04 Herpesviral vulvovaginitis; E11.65 Type 2 diabetes mellitus with hyperglycemia; Z91.14 Patient's other noncompliance with medication regimen; N76.0 Acute vaginitis; F15.10 Other stimulant abuse, uncomplicated; Z79.82 Long term (current) use of aspirin
CPT/HCPCS: 36415; 36416; 71045; 80053; 80306; 81001; 82009; 82962; 84484; 85025; 87210; 87491; 87591; 93005; 96361; 96374; 99284; J1815; J7030

== ENCOUNTER 2020-10-29 10:06 | Outpatient (CLI) | payer MEDICAID, SELFPAY ==
--- NOTE | 2020-10-29 11:30 | CT_ITS ---
WS: [id number] CT ABDOMEN AND PELVIS NONCONTRAST HISTORY: K43.9 - Ventral hernia without obstruction or gangrene TECHNIQUE: Imaging performed through the abdomen and pelvis. Coronal and sagittal reformats are submi tted. All CT scans at [facility] use at least one of these dose optimization techniques: automated exposure control; mA and/or kV adjustment per patient size (includes targeted exams where d ose is matched to clinical indication); or iterative reconstruction. DLP: 1073.03 mGycm COMPARISON: None available. Lower thorax: Benign calcification RIGHT middle lobe. Normal size heart. Small hiatal hernia. Liver: There is mild diffuse heterogeneity throughout the liver. Geographic pattern suggesting hepati c steatosis with areas of sparing. No bile duct dilatation. Gallbladder: Normal gallbladder. Pancreas: Normal size and attenuation. Normal pancreatic duct. No pancreatitis or mass. Spleen: Normal. Adrenal glands: Normal. No mass. Right kidney: Normal size kidney with no mass or hydronephrosis. Left kidney: Normal size kidney with no mass or hydronephrosis. Aorta: Normal abdominal aorta, no aneurysm or atherosclerosis. No free fluid, intraperitoneal air or significant lymphadenopathy. GI tract: The appendix is not definitely identified. Mild diffuse constipation and fecal retention. N o evidence for colitis or obstruction. There are several diverticula in the sigmoid colon with no acu te inflammation. Abdominal wall: Ventral abdominal wall hernia. There are 2 adjacent hernias around the umbilicus. Bot h of these hernia sacs contain fat without significant inflammation. Pelvis: Dense coarse calcifications in the uterus towards the fundus. This calcified mass measures 3. 4 x 2.7 cm. No adnexal mass. No free fluid or adenopathy. Osseous structures: Mild degenerative disc disease at L5-S1 with bilateral L5 pars defects. CT/CT abdomen pelvis wo con [id number] IMPRESSION: 1. No acute abdominal or pelvic abnormalities. 2. Ventral umbilical hernias containing fat only. There are 2 adjacent hernia sacs without inflammation. 3. Appendix not identified. No secondary findings of appendicitis. 4. Fibroid uterus. 5. Sigmoid diverticulosis without acute diverticulitis. 6. Hepatic steatosis with areas of sparing.
== END 2020-10-29 10:07 | disposition home or self-care (01) ==
LOC: RADWPI 10:08
PROVIDERS: PCP Family Medicine; Visit Provider Nurse Practitioner Family
DX: K43.9 Ventral hernia without obstruction or gangrene (principal); K76.0 Fatty (change of) liver, not elsewhere classified; K57.30 Diverticulosis of large intestine without perforation or abscess without bleeding; D25.9 Leiomyoma of uterus, unspecified; K42.9 Umbilical hernia without obstruction or gangrene
CPT/HCPCS: 74176; 81000

== ENCOUNTER → 2020-11-30 19:27 | Outpatient (BNVA) | payer MEDICAID, SELFPAY | PROVIDERS: PCP Family Medicine; Visit Provider Surgery | DX: Z20.822 Contact with and (suspected) exposure to COVID-19 (principal) | CPT/HCPCS: 87635 ==

== ENCOUNTER 2020-12-05 08:19 | Day surgery (SDC) | payer MEDICAID, SELFPAY ==
[2020-12-04 13:13] VITALS: BMI 34.0
[2020-12-05] VITALS (10 sets, daily range): BP systolic 144–189; BP diastolic 82–108; PULSE 82–91; RESP 12–22; TEMP 36.2–36.7; O2SAT 98–100
[2020-12-05 09:04] LABS: Glucose Point of Care 144 mg/dL (70-110)
[2020-12-05] MEDS: sodium chloride 0.9% 1,000 ML 30 ML IV (09:11)
[2020-12-05 09:18] LABS: OR HCG Qualitative Urine Negative (Negative)
--- NOTE | 2020-12-05 09:33 | ANES.PREANE2 ---
Pre-Anesthetic Assessment Pre-Anesthetic Assessment: Height/Weight: Height 1.55 m Weight 81.647 kg Temp Pulse Resp BP Pulse Ox 98.1 F 82 18 144/86 98 12/05/20 09:08 12/05/20 09:08 12/05/20 09:08 12/05/20 09:08 12/05/20 09:08 Preop Diagnosis: Incarcerated ventral hernia Proposed Procedure: Operation Date: 12/05/20 10:20 Proposed Procedures p Laparoscopic Possible Open Ventral Hernia Repair 04162 K43.9(Not Applicable) - Riley Meza MD Familial anesthetic complications: None Was Beta Keira taken within 24 hours: N/A Was Clonidine taken within 24 hours: N/A Last intake: Intake Last Liquid Date 12/04/20 Last Liquid Time 23:00 Last Solid Date 12/04/20 Last Solid Time 23:00 Social: Social History: No alcohol and No tobacco Comment: hx IVDA - eth last use months ago Exam: Pre-Anes Outpt Exam: alert, oriented x 3, clear to auscultation bilaterally and regular rate & rhythm Airway: Cervical ROM: WNL MP: 3 Dentition: Full CV/HEM: CV/HEM: HTN Comments: 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 States now back to normal with no restrictions in activity. Works at [employer] and is on her feet all day. Walks up stairs, no chest pains or SOB GI: GI: GERD Metabolic: Metabolic: DM Anesthetic Plan: ASA status: 3 Anesthesia: General Risk of > 500 ml blood loss (7ml/kg in children): No Meds/Allergies Current Medications: Current Medications Generic Name Dose Route Start Last Admin Trade Name Freq PRN Reason Stop Dose Admin Sodium Chloride 1,000 mls @ 30 ml s/hr 12/05/20 08:45 12/05/20 09:11 Sodium Chloride 0.9% IV 12/06/20 08:44 30 mls/hr .Q24H MELANIE Administration PFSH Anesthesia PFSH: Medical History (Updated 11/03/20 @ 15:09 by Riley Meza MD) Diabetes mellitus Hypertension Surgical History (Updated 11/02/20 @ 11:28 by Riley Meza MD) H/O dilation and curettage History of removal of laparoscopic gastric banding device Previous section Social History (Reviewed 11/02/20 @ 11:25 by ANTONIO Demarco Smoking and tobacco status: never smoked Alcohol intake: never Female Reproductive History: Date of last menstrual period: 11/06/20 Data Anesthesia Other Labs: Laboratory Results - last 48 hr 12/05/20 12/05/20 09:00 09:17 POC Glucose 144 H Urine HCG, Qual Negative Cardiac Studies: No Data to Display
--- NOTE | 2020-12-05 09:36 | P.HP_ITS ---
Same Day Surgery H&P Indication for Procedure/HPI DATE OF PROCEDURE: December 05, 2020 CHIEF COMPLAINT/INDICATIONFOR SURGICAL PROCEDURE: Incarcerated ventral hernia requiring hernia repair PREOP DIAGNOSIS: Incarcerated ventral hernia PLANNED PROCEDRUE: Operation Date: 12/05/20 10:20 Proposed Procedures p Laparoscopic Possible Open Ventral Hernia Repair 40466 K43.9(Not Applicable) - Riley Meza MD Medications/Allergies* Home Medications Medication Instructions Recorded Confirmed Type dapagliflozin [Farxiga] 10 mg PO DAILY 01/05/20 12/05/20 History ibuprofen 800 mg PO BID PRN 01/05/20 12/05/20 History lisinopril 10 mg PO DAILY 01/05/20 12/05/20 History metformin 750 mg PO BID 01/05/20 12/05/20 History omeprazole 20 mg PO DAILY 01/05/20 12/05/20 History spironolactone 25 mg PO DAILY 01/05/20 12/05/20 History vilazodone [Viibryd] 10 mg PO DAILY 01/05/20 12/05/20 History Allergies/Adverse Reactions Allergy/AdvReac Type Severity Reaction Status Date / Time No Known Allergies Allergy Verified 12/05/20 08:43 Current Medications: Generic Name Dose Route Start Last Admin Trade Name Freq PRN Reason Stop Dose Admin Sodium Chloride 1,000 mls @ 30 mls/hr 12/05/20 08:45 12/05/20 09:11 Sodium Chloride 0.9% IV 12/06/20 08:44 30 mls/hr .Q24H MELANIE Administration Pertinent History/Comorbid Conditions* Medical History (Updated 11/03/20 @ 15:09 by Riley Meza MD) Diabetes mellitus Hypertension Surgical History (Updated 11/02/20 @ 11:28 by Riley Meza MD) H/O dilation and curettage History of removal of laparoscopic gastric banding device Previous section Social History Smoking and tobacco status: never smoked Alcohol intake: never Pertinent Exam Findings alert and regular rate & rhythm Recommendations Surgery/Procedure today Coding Level of Care Code 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
--- NOTE | 2020-12-05 13:00 | P.PCN_ITS ---
PACU note PACU note: VSS, Good respiratory effort, report to CARD CHECKER Post-Anesthesia Exam: awake
--- NOTE | 2020-12-05 13:00 | PM.PACU ---
PACU note PACU note: VSS, Good respiratory effort, report to PATTERN VAULT CLERK Post-Anesthesia Exam: awake
[2020-12-05] MEDS: HYDROmorphone 1 mg/mL INJ 1 mL 0.5 MG IVP ×2 (13:04→13:09)
--- NOTE | 2020-12-05 13:17 | PM.OP ---
Operative Report Date of procedure: December 05, 2020 Pre-op Diagnosis: Incarcerated ventral hernia Post-op Diagnosis: Incarcerated incisional hernia with Cymro cheese defects measuring 13 x 7cm Procedure Done: Laparoscopic repair of incarcerated incisional hernia with Ventralight mesh measuring 20 x 15cm. Surgeon: Riley Meza Anesthesia: General Condition: stable Disposition: PACU Procedure: The patient was taken to the Operating Room and was intubated under general anesthesia after the antibiotic had been administered. The abdomen was prepped and draped in a sterile manner. Using a 15 blade, a 2-cm incision was made in the left upper quadrant in the anterior axillary line and pneumoperitoneum was created using Verres needle. A 10 mm Negra port was placed and 15 mm of pneumoperitoneum was created after a 10 mm 30? scope had been introduced. 5 mm port was placed at the level of the umbilicus under direct visualization. Using a combination of electrocautery and scissors the peritoneum in the midline was taken down and the omental fat within the hernial sac was reduced. There were multiple cysts cheese defects noted inferior to the umbilicus. A spinal needle was introduced through the abdominal wall and the edges of the hernial defect were marked and measured 13 x 7 cm. A 4 cm margin was marked on the abdominal wall on the outer edge of the hernial defect. 20 x 15 cm Ventralight mesh was deployed and 4 separate 2-0 [place] sutures were placed at the 4 corners of the mesh. Grannie needle was passed through the stab incisions and used to grasp the free ends of the [place] sutures which were used to pull the mesh up against the abdominal wall; Optifix tacks were placed 1 cm apart along the edge of the mesh to hold it against the abdominal wall. The Echo deployment system was removed after cutting the suture. At the end of this, it was noted that the mesh was well positioned over the hernial defect. 20 cc of saline mixed with 20cc of Exparel mixed with 20cc of 0.5% Marcaine was infiltrated in the midclavicular line under laparoscopic visualization for a TAP block. All ports were removed under direct visualization and there was no bleeding noted from the port sites. The external oblique aponeurosis was approximated at this port site using figure of eight 0 Vicryl suture. The subcutaneous tissue was approximated using 3-0 Vicryl sutures. The skin at all port sites was closed using subcuticular 4-0 Monocryl suture. The stab incisions and the port sites were covered with Dermabond. Abdominal binder was placed at the end of the procedure and the patient was extubated and transferred to recovery room in stable condition.
[2020-12-05] MEDS: HYDROcodone-acetaminophen 5-325 mg Tablet 1 TAB PO (13:40)
--- NOTE | 2020-12-05 16:24 | ANE.PACU2 ---
Inpatient post-anesthesia follow up: Airway intact: Yes Vital signs: Temperature 97.1 F Pulse Rate 84 Respiratory Rate 18 Blood Pressure 145/82 Pulse Oximetry 99 Oxygen Delivery Me thod Room Air Oxygen Flow Rate 8 Fraction of Inspir ed Oxygen Hydration adequate: Yes Nausea and vomiting: No Pain level: 2 Mental status: Baseline
== END 2020-12-05 14:19 | disposition home or self-care (01) ==
PROVIDERS: PCP Family Medicine; Visit Provider Surgery
PROC: 0WQF4ZZ Repair Abdominal Wall, Percutaneous Endoscopic Approach (ICD-10-PCS; CPT 49653; principal; 2020-12-05 10:10)
DX: K43.6 Other and unspecified ventral hernia with obstruction, without gangrene (principal); I10 Essential (primary) hypertension; K21.9 Gastro-esophageal reflux disease without esophagitis; E11.9 Type 2 diabetes mellitus without complications
CPT/HCPCS: 49653; 36416; 82962; 84703; C1781; C9290; J0690; J1100; J1170; J2405; J2704; J2710; J3010; J3490; J7030

== ENCOUNTER 2021-04-23 15:47 | Emergency (ER) | payer MEDICAID, SELFPAY ==
--- NOTE | 2021-04-23 16:27 | ECG_ITS ---
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 Measurements Intervals Fowler Rate: 89 P: 51 GA: 195 QRS: -72 QRSD: 130 T: -32 QT: 360 QTc: 439 Interpretive Statements SINUS RHYTHM RIGHT BUNDLE BRANCH BLOCK [120+ ms QRS DURATION, UPRIGHT V1, 40+ ms S IN I/aVL/V4/V5/V6] INFERIOR MYOCARDIAL INFARCTION , OF INDETERMINATE AGE [40+ ms Q WAVE AND/OR ST/T ABNORMALITY IN II/aVF] POSSIBLE ANTEROSEPTAL MYOCARDIAL INFARCTION , OF INDETERMINATE AGE Compared to ECG 08/24/2020 19:50:06 Left anterior fascicular block no longer present Myocardial infarct finding still present Electronically Signed On 04-23-2021 17:51:13 RETICLE PRINTER by Gladys Morrow M.D. [email or web address]
--- NOTE | 2021-04-23 16:27 | XRR_ITS ---
PROCEDURE INFORMATION: Exam: XR Chest Exam date and time: 04/23/2021 4:27 PM Age: 46 years old Clinical indication: Other: None specific; Patient HX: Patient is a 46-year-old female presents to ED today with a complaint of chest pain over the past 3 days and elevated blood sugars (+500). TECHNIQUE: Imaging protocol: XR of the chest. Views: 1 view. COMPARISON: CR XR chest 1V portable [id number] 08/24/2020 6:16 PM FINDINGS: Lungs: Unremarkable. No consolidation. Pleural spaces: Unremarkable. No pleural effusion. No pneumothorax. Heart/Mediastinum: Unremarkable. No cardiomegaly. Bones/joints: Unremarkable. XR/XR chest 1V portable [id number] IMPRESSION: No acute findings.
[2021-04-23 16:33] VITALS: BP 107/54; PULSE 91; RESP 16; TEMP 36.4; O2SAT 98; BMI 35.3
--- NOTE | 2021-04-23 16:42 | ED_ITS ---
Documented by User: CHAD Fernandez 04/26/21 17:47 HPI - General Adult General: Chief complaint: Chest Pain Stated complaint: HIGH BLOOD SUGAR/CP Time Seen by Provider: 04/23/21 16:42 Source: patient Mode of arrival: ambulatory Limitations: no limitations History of Present Illness: HPI narrative: Patient is a 46-year-old female presents to ED today with a complaint of chest pain over the past 3 days and elevated blood sugars. Patient states she was at her doctor's office for concerns of toe pain when they checked her blood sugar and it was in the 500s. Patient admittedly does not check her sugars at home. She does take medications for diabetes (Metformin and Farxiga). Patient denies vomiting or diarrhea. PENDING SALE TO [facility] ED PFSH: Medical History (Updated 04/23/21 @ 19:45 by Wally Sexton MD) Diabetes Diabetes mellitus Hypertension Surgical History H/O dilation and curettage History of delivery History of incisional hernia repair (12/05/20) History of removal of laparoscopic gastric banding device Social History Smoking and tobacco status: never smoked Alcohol intake: never Female Reproductive History: Date of last menstrual period: 11/06/20 Physical Exam Const: COMMON NORMALS: no acute distress, no limitations and alert NUTRITIONAL APPEARANCE: obese morbidly obese Resp: COMMON NORMALS: normal respiratory effort and clear to auscultation bilaterally AUSCULTATION: clear to auscultation bilaterally Cardio: COMMON NORMALS: regular rate and regular rhythm RATE: regular rate RHYTHM: regular rhythm Extremity: NARRATIVE EXTREMITY EXAM: no toe necrosis/diabetic ulcers Neuro: SENSORIUM/ORIENTATION: Yes alert Course Vital Signs: Vital signs: Vital Signs Temperature 97.6 F 04/23/21 16:33 Pulse Rate 90 04/23/21 22:25 Respiratory Rate 18 04/23/21 22:25 Blood Pressure 155/87 04/23/21 22:25 Pulse Oximetry 99 04/23/21 22:25 MDM - General Adult MDM Narrative: Medical decision making narrative: Brief history and physical exam was performed as part of the triage process. Due to current ED wait time patient will be placed in waiting room until a room becomes available. Explained to patient he/she will be seen in order of severity. Patient is currently safe to wait in the waiting room until we can get them placed. Patient informed that if condition worsens at any time to please let the medical front desk specialist know. Lab Data: Labs: Lab Results 04/23/21 04/23/21 04/23/21 16:44 16:45 16:45 WBC 7.9 10^3/uL 10^3/ uL (4.0-10.0) RBC 5.24 10^6/uL 10^6 /uL (4.1-5.3) Hgb 16.5 g/dL H g/dL (11.5-15.3) Hct 48.8 % H % (37.0-47.0) MCV 93.1 fl fl (81-99) MCH 31.5 pg pg (28.0-34.0) MCHC 33.8 g/dL g/dL (30.0-36.0) RDW 11.8 % L % (12.1-15.1) Plt Count 273 10^3/cmm 10^3 /cmm (130-400) MPV 10.0 fL fL (7.4-10.4) Neut % (Auto) 65.3 % % Lymph % (Auto) 28.4 % % [place] % (Auto) 5.1 % % Eos % (Auto) 0.5 % % Baso % (Auto) 0.4 % % Neut # (Auto) 5.14 10^3/uL 10^3 /uL (1.8-7.7) Lymph # (Auto) 2.2 10^3/uL 10^3/ uL (0.8-4.8) [place] # (Auto) 0.4 10^3/uL 10^3/ uL (0.2-0.9) Eos # (Auto) 0.0 10^3/uL 10^3/ uL (0.0-0.8) Baso # (Auto) 0.0 10^3/uL 10^3/ uL (0.0-0.1) Nucleated RBC % (a uto) 0 % % Nucleated RBCs # 0.0 /100WBC /100W BC Sodium 131 mmol/L L mmol /L (136-145) Potassium 4.2 mmol/L mmol/L (3.5-5.1) Chloride 95 mmol/L L mmol/ L (98-107) Carbon Dioxide 19 mmol/L L mmol/ L (22-29) Anion Gap 21.2 H (5-19) BUN 6 mg/dL mg/dL (6-20) Creatinine 0.5 mg/dL mg/dL (0.5-0.9) GFR Calculation 134.0 mL/min H mL /min (90-130) Glucose 589 mg/dL H* mg/d L (65-115) POC Glucose Calculated Osmolal ity 297 mOsm/kg H mOs m/kg (285-295) Calcium 8.1 mg/dL L mg/dL (8.5-10.5) Total Bilirubin 0.2 mg/dL mg/dL (0.15-1.2) AST 11 U/L U/L (0-32) ALT 17 U/L U/L (0-33) Alkaline Phosphata se 95 IU/L IU/L (35-105) Troponin T Baselin e Troponin T 120 Min [place] Troponin T Total Protein 6.5 g/dL L g/dL (6.6-8.7) Albumin 3.7 g/dL g/dL (3.5-5.2) Globulin 2.8 g/dL g/dL (1.3-4.6) HCG, Qual Urine Color Colorless (Yellow) Urine Appearance Clear (CLEAR) Urine pH 6.5 (5-7) Ur Specific Gravit y 1.005 (1.005-1.030) Urine Protein Neg (Negative) Urine Glucose (UA) 4+ H (Normal) Urine Ketones Negative (Negative) Urine Blood Neg (Negative) Urine Nitrate Negative (Negative) Urine Bilirubin Neg (Negative) Urine Urobilinogen Norm mg/dL mg/dL (Negative) Ur Leukocyte Cici ase Negative (Negative) Serum Ketones 04/23/21 04/23/21 04/23/21 16:45 16:45 16:45 WBC RBC Hgb Hct MCV MCH MCHC RDW Plt Count MPV Neut % (Auto) Lymph % (Auto) [place] % (Auto) Eos % (Auto) Baso % (Auto) Neut # (Auto) Lymph # (Auto) [place] # (Auto) Eos # (Auto) Baso # (Auto) Nucleated RBC % (a uto) Nucleated RBCs # Sodium Potassium Chloride Carbon Dioxide Anion Gap BUN Creatinine GFR Calculation Glucose POC Glucose Calculated Osmolal ity Calcium Total Bilirubin AST ALT Alkaline Phosphata se Troponin T Baselin e 7 ng/L ng/L (0-10) Troponin T 120 Min [place] Troponin T Total Protein Albumin Globulin HCG, Qual Negative (Negative) Urine Color Urine Appearance Urine pH Ur Specific Gravit y Urine Protein Urine Glucose (UA) Urine Ketones Urine Blood Urine Nitrate Urine Bilirubin Urine Urobilinogen Ur Leukocyte Cici ase Serum Ketones Negative (Negative) 04/23/21 04/23/21 04/23/21 19:59 21:00 21:00 WBC RBC Hgb Hct MCV MCH MCHC RDW Plt Count MPV Neut % (Auto) Lymph % (Auto) [place] % (Auto) Eos % (Auto) Baso % (Auto) Neut # (Auto) Lymph # (Auto) [place] # (Auto) Eos # (Auto) Baso # (Auto) Nucleated RBC % (a uto) Nucleated RBCs # Sodium Potassium Chloride Carbon Dioxide Anion Gap BUN Creatinine GFR Calculation Glucose 319 mg/dL H mg/dL (65-115) POC Glucose 437 mg/dL H mg/dL (70-110) Calculated Osmolal ity Calcium Total Bilirubin AST ALT Alkaline Phosphata se Troponin T Baselin e Troponin T 120 Min [place] 7.62 ng/L ng/L (0-10) [place] Troponin T 0.62 ABS# ABS# (0-10) Total Protein Albumin Globulin HCG, Qual Urine Color Urine Appearance Urine pH Ur Specific Gravit y Urine Protein Urine Glucose (UA) Urine Ketones Urine Blood Urine Nitrate Urine Bilirubin Urine Urobilinogen Ur Leukocyte Cici ase Serum Ketones 04/23/21 04/23/21 21:09 22:04 WBC RBC Hgb Hct MCV MCH MCHC RDW Plt Count MPV Neut % (Auto) Lymph % (Auto) [place] % (Auto) Eos % (Auto) Baso % (Auto) Neut # (Auto) Lymph # (Auto) [place] # (Auto) Eos # (Auto) Baso # (Auto) Nucleated RBC % (a uto) Nucleated RBCs # Sodium Potassium Chloride Carbon Dioxide Anion Gap BUN Creatinine GFR Calculation Glucose POC Glucose 330 mg/dL H mg/dL 219 mg/dL H mg/dL (70-110) (70-110) Calculated Osmolal ity Calcium Total Bilirubin AST ALT Alkaline Phosphata se Troponin T Baselin e Troponin T 120 Min [place] Troponin T Total Protein Albumin Globulin HCG, Qual Urine Color Urine Appearance Urine pH Ur Specific Gravit y Urine Protein Urine Glucose (UA) Urine Ketones Urine Blood Urine Nitrate Urine Bilirubin Urine Urobilinogen Ur Leukocyte Cici ase Serum Ketones Discharge Plan Discharge Patient Disposition: Home Clinical Impression: Hypertension, Chest pain, Acute hyperglycemia, Back pain Condition: Stable Prescriptions: No Action doxycycline hyclate 100 mg tablet 100 mg PO BID 10 Days Qty: 20 RF: 0 ondansetron HCl [Zofran] 4 mg tablet 4 mg PO Q6H PRN (Reason: nausea and vomiting) Qty: 20 RF: 0 ibuprofen 800 mg tablet 800 mg PO BID PRN (Reason: Pain) RF: 0 spironolactone 25 mg tablet 25 mg PO DAILY RF: 0 lisinopril 10 mg tablet 10 mg PO DAILY RF: 0 omeprazole 20 mg capsule,delayed release(DR/EC) 20 mg PO DAILY RF: 0 metformin 750 mg tablet extended release 24 hr 750 mg PO BID RF: 0 Farxiga 10 mg tablet 10 mg PO DAILY RF: 0 acyclovir 800 mg Tablet 800 mg PO TID RF: 0 gabapentin 100 mg Capsule 100 - 200 mg PO BEDTIME RF: 0 Allergy Relief (loratadine) 10 mg tablet 10 mg PO DAILY RF: 0 desvenlafaxine succinate 50 mg Tablet Extended Release 24 Hr 50 mg PO DAILY RF: 0 Mobic 15 mg tablet 15 mg PO DAILY RF: 0 Discharge Orders: Discharge ED (Routine); Ordered 04/23/21 Ordered By: Wally Sexton Referrals: Keyanna Perez DO [Primary Care Provider] - Discharge Diet: Advance as tolerated Discharge Activity: Resume usual activity Patient Instructions: Hyperglycemia, Chest Pain (ED) Activity Restrictions/Additional Instructions: Come back to the emergency room if your chest pain worsens, have any fever or chills, worsening shortness of breath, worsening exertional lightheadedness, or any new or concerning complaints. Come back if your sugar is high, or if you have any new or concerning complaints. Please refrain from further drug use. You need to follow-up with your primary care provider for further adjustment of your blood pressure. Your blood pressure puts you at risk for developing strokes and heart attack. Therefore it is very important for you to follow-up with this number to see if the numbers improve gradually. Because blood pressure adjustment is a gradual process, were not able to change it in 1 visit. Therefore please log your blood pressure and follow-up with your primary care provider in the next 72 hours for further adjustment of your blood pressures. 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 Patient tells me that she thinks that her blood pressure and her glucose are uncontrolled. Patient denies any meth use in the last 2 days. Patient tells me that she snorted the meth. Denies any history of IV drug use. Denies any fever/chills, but reports generalized weakness, cough, and malaise. Patient reports achy back pain. Denies any saddle anesthesia, bladder or bowel problem. Patient says that she is not taking her medicine compliantly for diabetes. She experiences tingling sensation in her toes. She has a history of chest pain previously. Patient denies this chest pain is different from her prior chest pain. Denies aching chest sensation throughout her chest. Denies any exertional chest pain, exertional dyspnea, pleuritic chest pain, hemoptysis, swelling, previous history of DVTs. No family history of aneurysms. PENDING SALE TO [facility] ED PFSH: Medical History (Updated 04/23/21 @ 19:45 by Wally Sexton MD) Diabetes Diabetes mellitus Hypertension Surgical History H/O dilation and curettage History of delivery History of incisional hernia repair (12/05/20) History of removal of laparoscopic gastric banding device Social History Smoking and tobacco status: never smoked Alcohol intake: never Course Vital Signs: Vital signs: Vital Signs Temperature 97.6 F 04/23/21 16:33 Pulse Rate 90 04/23/21 22:25 Respiratory Rate 18 04/23/21 22:25 Blood Pressure 155/87 04/23/21 22:25 Pulse Oximetry 99 04/23/21 22:25 MDM - General Adult MDM Narrative: Medical decision making narrative: 46-year-old female presenting to the emergency room for multiple complaints including hyperglycemia, hypertension, chest pain and back pain. On exam, patient is hemodynamically stable, neurologically intact. Patient has no midline tenderness on palpation to the back exam. No saddle anesthesia, no lower extremity weakness. Patient is noted to have an elevated glucose today at 589. EKG is nonischemic x2. Calcium mildly low at 8.1. Troponin x2 within normal limit. Patient is noted to be hemoconcentrated 16.5. Patient received 2 L of fluid, 10 units of insulin, and 2 g of calcium gluconate. Patient has glucose improvement. At the present, patient is not reporting any chest pain. EKG showing regular sinus rhythm at HT of 77. LAFB, RBBB No ST elevations/depressions to suggest coronary occlusion. Normal [place], QRS, QT intervals. EKG unchaged from 08/24/2020 Doubt ACS/PE or other emergent causes of chest pain. No suspicion for aortic dissection given no widened mediastinum, 2+ upper extremity pulses, or tearing pain. No suspicion for PE given no pleuritic chest pain, recent immobilization or surgery, hemoptysis, or other VTE risk factors. EKG is non-ischemic. XR normal. In addition, I do not suspect the patient is experiencing acute cord compression or epidural abscess reassuring white count, no signs of spinal cord compression, and no midline tenderness. I counseled patient extensively regarding her drug use and instructed patient to come back to the emergency room for any future relapse. Blood pressure improved today with amlodipine in the emergency room. Patient agrees with plan Rx amlodipine 10mg for hypertension Disposition: Discharge. Patient counseled regarding diagnostic impression, treatment plan. Patient given ED strict return precautions to return for continuation, worsening, or development of new symptoms. Instructed to f/u w/ PCP regarding symptoms today. Patient verbalized understanding. Lab Data: Labs: Lab Results 04/23/21 04/23/21 04/23/21 16:44 16:45 16:45 WBC 7.9 10^3/uL 10^3/ uL (4.0-10.0) RBC 5.24 10^6/uL 10^6 /uL (4.1-5.3) Hgb 16.5 g/dL H g/dL (11.5-15.3) Hct 48.8 % H % (37.0-47.0) MCV 93.1 fl fl (81-99) MCH 31.5 pg pg (28.0-34.0) MCHC 33.8 g/dL g/dL (30.0-36.0) RDW 11.8 % L % (12.1-15.1) Plt Count 273 10^3/cmm 10^3 /cmm (130-400) MPV 10.0 fL fL (7.4-10.4) Neut % (Auto) 65.3 % % Lymph % (Auto) 28.4 % % [place] % (Auto) 5.1 % % Eos % (Auto) 0.5 % % Baso % (Auto) 0.4 % % Neut # (Auto) 5.14 10^3/uL 10^3 /uL (1.8-7.7) Lymph # (Auto) 2.2 10^3/uL 10^3/ uL (0.8-4.8) [place] # (Auto) 0.4 10^3/uL 10^3/ uL (0.2-0.9) Eos # (Auto) 0.0 10^3/uL 10^3/ uL (0.0-0.8) Baso # (Auto) 0.0 10^3/uL 10^3/ uL (0.0-0.1) Nucleated RBC % (a uto) 0 % % Nucleated RBCs # 0.0 /100WBC /100W BC Sodium 131 mmol/L L mmol /L (136-145) Potassium 4.2 mmol/L mmol/L (3.5-5.1) Chloride 95 mmol/L L mmol/ L (98-107) Carbon Dioxide 19 mmol/L L mmol/ L (22-29) Anion Gap 21.2 H (5-19) BUN 6 mg/dL mg/dL (6-20) Creatinine 0.5 mg/dL mg/dL (0.5-0.9) GFR Calculation 134.0 mL/min H mL /min (90-130) Glucose 589 mg/dL H* mg/d L (65-115) POC Glucose Calculated Osmolal ity 297 mOsm/kg H mOs m/kg (285-295) Calcium 8.1 mg/dL L mg/dL (8.5-10.5) Total Bilirubin 0.2 mg/dL mg/dL (0.15-1.2) AST 11 U/L U/L (0-32) ALT 17 U/L U/L (0-33) Alkaline Phosphata se 95 IU/L IU/L (35-105) Troponin T Baselin e Troponin T 120 Min [place] Troponin T Total Protein 6.5 g/dL L g/dL (6.6-8.7) Albumin 3.7 g/dL g/dL (3.5-5.2) Globulin 2.8 g/dL g/dL (1.3-4.6) HCG, Qual Urine Color Colorless (Yellow) Urine Appearance Clear (CLEAR) Urine pH 6.5 (5-7) Ur Specific Gravit y 1.005 (1.005-1.030) Urine Protein Neg (Negative) Urine Glucose (UA) 4+ H (Normal) Urine Ketones Negative (Negative) Urine Blood Neg (Negative) Urine Nitrate Negative (Negative) Urine Bilirubin Neg (Negative) Urine Urobilinogen Norm mg/dL mg/dL (Negative) Ur Leukocyte Cici ase Negative (Negative) Serum Ketones 04/23/21 04/23/21 04/23/21 16:45 16:45 16:45 WBC RBC Hgb Hct MCV MCH MCHC RDW Plt Count MPV Neut % (Auto) Lymph % (Auto) [place] % (Auto) Eos % (Auto) Baso % (Auto) Neut # (Auto) Lymph # (Auto) [place] # (Auto) Eos # (Auto) Baso # (Auto) Nucleated RBC % (a uto) Nucleated RBCs # Sodium Potassium Chloride Carbon Dioxide Anion Gap BUN Creatinine GFR Calculation Glucose POC Glucose Calculated Osmolal ity Calcium Total Bilirubin AST ALT Alkaline Phosphata se Troponin T Baselin e 7 ng/L ng/L (0-10) Troponin T 120 Min [place] Troponin T Total Protein Albumin Globulin HCG, Qual Negative (Negative) Urine Color Urine Appearance Urine pH Ur Specific Gravit y Urine Protein Urine Glucose (UA) Urine Ketones Urine Blood Urine Nitrate Urine Bilirubin Urine Urobilinogen Ur Leukocyte Cici ase Serum Ketones Negative (Negative) 04/23/21 04/23/21 04/23/21 19:59 21:00 21:00 WBC RBC Hgb Hct MCV MCH MCHC RDW Plt Count MPV Neut % (Auto) Lymph % (Auto) [place] % (Auto) Eos % (Auto) Baso % (Auto) Neut # (Auto) Lymph # (Auto) [place] # (Auto) Eos # (Auto) Baso # (Auto) Nucleated RBC % (a uto) Nucleated RBCs # Sodium Potassium Chloride Carbon Dioxide Anion Gap BUN Creatinine GFR Calculation Glucose 319 mg/dL H mg/dL (65-115) POC Glucose 437 mg/dL H mg/dL (70-110) Calculated Osmolal ity Calcium Total Bilirubin AST ALT Alkaline Phosphata se Troponin T Baselin e Troponin T 120 Min [place] 7.62 ng/L ng/L (0-10) [place] Troponin T 0.62 ABS# ABS# (0-10) Total Protein Albumin Globulin HCG, Qual Urine Color Urine Appearance Urine pH Ur Specific Gravit y Urine Protein Urine Glucose (UA) Urine Ketones Urine Blood Urine Nitrate Urine Bilirubin Urine Urobilinogen Ur Leukocyte Cici ase Serum Ketones 04/23/21 04/23/21 21:09 22:04 WBC RBC Hgb Hct MCV MCH MCHC RDW Plt Count MPV Neut % (Auto) Lymph % (Auto) [place] % (Auto) Eos % (Auto) Baso % (Auto) Neut # (Auto) Lymph # (Auto) [place] # (Auto) Eos # (Auto) Baso # (Auto) Nucleated RBC % (a uto) Nucleated RBCs # Sodium Potassium Chloride Carbon Dioxide Anion Gap BUN Creatinine GFR Calculation Glucose POC Glucose 330 mg/dL H mg/dL 219 mg/dL H mg/dL (70-110) (70-110) Calculated Osmolal ity Calcium Total Bilirubin AST ALT Alkaline Phosphata se Troponin T Baselin e Troponin T 120 Min [place] Troponin T Total Protein Albumin Globulin HCG, Qual Urine Color Urine Appearance Urine pH Ur Specific Gravit y Urine Protein Urine Glucose (UA) Urine Ketones Urine Blood Urine Nitrate Urine Bilirubin Urine Urobilinogen Ur Leukocyte Cici ase Serum Ketones Imaging Data^: Other Imaging: Radiologist's impression: [address] [id number] ReportSigned Patient: Benny Lin #: [id number]: [id number]#:[id number]/Sex: 46 / FADM Date: 04/23/21Loc: ERRoom/Bed:Attending Dr: Ordering Provider/Ordering MD: Anne Ocampo Date of Service: 04/23/21 Procedure(s): XR chest 1V portable [id number] Accession Number(s): [id number] Report Number: [id number] PROCEDURE INFORMATION: Exam: XR Chest Exam date and time: 04/23/2021 4:27 PM Age: 46 years old Clinical indication: Other: None specific; Patient HX: Patient is a 46-year-old female presents to ED today with a complaint of chest pain over the past 3 days and elevated blood sugars (+500). TECHNIQUE: Imaging protocol: XR of the chest. Views: 1 view. COMPARISON: CR XR chest 1V portable [id number] 08/24/2020 6:16 PM FINDINGS: Lungs: Unremarkable. No consolidation. Pleural spaces: Unremarkable. No pleural effusion. No pneumothorax. Heart/Mediastinum: Unremarkable. No cardiomegaly. Bones/joints: Unremarkable. XR/XR chest 1V portable [id number] IMPRESSION: No acute findings. Dictated By:Manav Marvin MDSigned By:Manav Marvin MDSigned Date/Time:04/23/211806DD/ 1627 Discharge Plan Discharge Patient Disposition: Home Clinical Impression: Hypertension, Chest pain, Acute hyperglycemia, Back pain Condition: Stable Prescriptions: No Action doxycycline hyclate 100 mg tablet 100 mg PO BID 10 Days Qty: 20 RF: 0 ondansetron HCl [Zofran] 4 mg tablet 4 mg PO Q6H PRN (Reason: nausea and vomiting) Qty: 20 RF: 0 ibuprofen 800 mg tablet 800 mg PO BID PRN (Reason: Pain) RF: 0 spironolactone 25 mg tablet 25 mg PO DAILY RF: 0 lisinopril 10 mg tablet 10 mg PO DAILY RF: 0 omeprazole 20 mg capsule,delayed release(DR/EC) 20 mg PO DAILY RF: 0 metformin 750 mg tablet extended release 24 hr 750 mg PO BID RF: 0 Farxiga 10 mg tablet 10 mg PO DAILY RF: 0 acyclovir 800 mg Tablet 800 mg PO TID RF: 0 gabapentin 100 mg Capsule 100 - 200 mg PO BEDTIME RF: 0 Allergy Relief (loratadine) 10 mg tablet 10 mg PO DAILY RF: 0 desvenlafaxine succinate 50 mg Tablet Extended Release 24 Hr 50 mg PO DAILY RF: 0 Mobic 15 mg tablet 15 mg PO DAILY RF: 0 Discharge Orders: Discharge ED (Routine); Ordered 04/23/21 Ordered By: Wally Sexton Referrals: Keyanna Perez DO [Primary Care Provider] - Discharge Diet: Advance as tolerated Discharge Activity: Resume usual activity Patient Instructions: Hyperglycemia, Chest Pain (ED) Activity Restrictions/Additional Instructions: Come back to the emergency room if your chest pain worsens, have any fever or chills, worsening shortness of breath, worsening exertional lightheadedness, or any new or concerning complaints. Come back if your sugar is high, or if you have any new or concerning complaints. Please refrain from further drug use. You need to follow-up with your primary care provider for further adjustment of your blood pressure. Your blood pressure puts you at risk for developing strokes and heart attack. Therefore it is very important for you to follow-up with this number to see if the numbers improve gradually. Because blood pressure adjustment is a gradual process, were not able to change it in 1 visit. Therefore please log your blood pressure and follow-up with your primary care provider in the next 72 hours for further adjustment of your blood pressures. 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
[2021-04-23 16:52] LABS: Basophils % 0.4 %; Eosinophils % 0.5 %; Hematocrit 48.8 % (37.0-47.0); Hemoglobin 16.5 g/dL (11.5-15.3); Lymphocytes # 2.2 10^3/uL (0.8-4.8); Lymphocytes % 28.4 %; Mean Corpuscular HGB Conc 33.8 g/dL (30.0-36.0); Mean Corpuscular Hemoglobin 31.5 pg (28.0-34.0); Mean Corpuscular Volume 93.1 fl (81-99); Monocytes # 0.4 10^3/uL (0.2-0.9); Monocytes % 5.1 %; Neutrophils # 5.14 10^3/uL (1.8-7.7); Neutrophils % 65.3 %; Nucleated Red Blood Cells % 0 %; Platelet Count 273 10^3/cmm (130-400); Red Blood Count 5.24 10^6/uL (4.1-5.3); Red Cell Distribution Width 11.8 % (12.1-15.1); White Blood Count 7.9 10^3/uL (4.0-10.0)
[2021-04-23 17:21] LABS: Troponin(5th) Baseline 7 ng/L (0-10)
[2021-04-23 17:24] LABS: Alanine Aminotransferase 17 U/L (0-33); Albumin Level 3.7 g/dL (3.5-5.2); Alkaline Phosphatase 95 IU/L (35-105); Anion Gap 21.2 (5-19); Aspartate Amino Transferase 11 U/L (0-32); Blood Urea Nitrogen 6 mg/dL (6-20); Calcium 8.1 mg/dL (8.5-10.5); Carbon Dioxide 19 mmol/L (22-29); Chloride 95 mmol/L (98-107); Globulin 2.8 g/dL (1.3-4.6); Osmolality Calculated 297 mOsm/kg (285-295); Potassium 4.2 mmol/L (3.5-5.1); Sodium 131 mmol/L (136-145); Total Bilirubin 0.2 mg/dL (0.15-1.2); Total Protein 6.5 g/dL (6.6-8.7)
[2021-04-23 17:26] LABS: Glucose 589 mg/dL (65-115)
[2021-04-23 17:27] LABS: HCG, Serum Qual Negative (Negative); Ketone (Acetest) Serum Negative (Negative)
[2021-04-23 17:50] LABS: Add Urine Microscopic? NO; Charge for UA Resulting for Rev
[2021-04-23 18:12] LABS: Bilirubin Urine Neg (Negative); Blood Urine Neg (Negative); Glucose Urine UA 4+ (Normal); Ketones Urine Negative (Negative); Leukocyte Esterase Urine Negative (Negative); Nitrate Urine Negative (Negative); Protein Urine Neg (Negative); Specific Gravity, Urine 1.005 (1.005-1.030); Urine Appearance Clear (CLEAR); Urine Color Colorless (Yellow); Urobilinogen Urine Norm (Negative); pH Urine 6.5 (5-7)
--- NOTE | 2021-04-23 18:27 | ECG_ITS ---
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 Measurements Intervals [place] Rate: 77 P: 58 TN: 175 QRS: -69 QRSD: 150 T: -15 QT: 417 QTc: 474 Interpretive Statements SINUS RHYTHM RIGHT BUNDLE BRANCH BLOCK [120+ ms QRS DURATION, UPRIGHT V1, 40+ ms S IN I/aVL/V4/V5/V6] LEFT ANTERIOR FASCICULAR BLOCK [QRS AXIS <= -45, QR IN I, RS IN II] POSSIBLE ANTERIOR MYOCARDIAL INFARCTION , OF INDETERMINATE AGE [30 ms Q WAVE IN V3/V4, OR R < 0.2 mV IN V4] Compared to ECG 04/23/2021 16:29:21 Left anterior fascicular block now present Myocardial infarct finding still present Electronically Signed On 04-23-2021 22:12:48 [employer]OOFING FOREM[employer] by Gladys Morrow M.D. [id number]
[2021-04-23 18:45] VITALS: BP 206/117; PULSE 106; RESP 20; O2SAT 99
[2021-04-23 19:00] VITALS: BP 183/97; PULSE 86; RESP 17; O2SAT 98
--- NOTE | 2021-04-23 19:27 | PC.NURSE ---
received report. patient comes in with multiple complaints. CP, elevated blood sugar, left flank, back pain, and tooth pain. she states she has had elevated glucose as of late but endorses not taking medication as directed nor does she check her BS regularly. she states the medication makes her nauseated and so she jst doesn't take it like she should. her CP has resolved.
[2021-04-23] MEDS: sodium chloride 0.9% 1,000 ML 999 ML IV ×2 (19:59→20:00)
[2021-04-23] MEDS: insulin lispro 100 unit/1 mL 10 UNIT SUBCUT (20:10)
[2021-04-23] MEDS: amlodipine 10 mg Tablet PO (20:13)
[2021-04-23 21:00] VITALS: BP 205/114; PULSE 82; RESP 18; O2SAT 99
--- NOTE | 2021-04-23 21:18 | PC.PHAR ---
pt is non compliant with medications and states she only takes them when she thinks of it
[2021-04-23] MEDS: hyDRALAzine 20 mg/mL INJ 1 mL IVP (21:23)
[2021-04-23 21:27] LABS: Troponin 5 2HR 7.62 ng/L (0-10)
[2021-04-23 21:32] LABS: Glucose Point of Care 437 mg/dL (70-110)
[2021-04-23 21:32] LABS: Glucose Point of Care 330 mg/dL (70-110)
[2021-04-23 21:40] VITALS: BP 155/87
[2021-04-23 21:51] LABS: Glucose 319 mg/dL (65-115)
[2021-04-23 22:00] LABS: Troponin 5 2HR Delta 0.62 ABS# (0-10)
[2021-04-23 22:06] LABS: Glucose Point of Care 219 mg/dL (70-110)
[2021-04-23 22:25] VITALS: BP 155/87; PULSE 90; RESP 18; O2SAT 99
== END 2021-04-23 22:10 | disposition home or self-care (01) ==
PROVIDERS: Physician Assistant; Emergency Provider Emergency Medicine; PCP Family Medicine
DX: R07.9 Chest pain, unspecified (principal); I10 Essential (primary) hypertension; E11.65 Type 2 diabetes mellitus with hyperglycemia; Z79.84 Long term (current) use of oral hypoglycemic drugs
CPT/HCPCS: 36415; 36416; 71045; 80053; 81003; 82009; 82947; 82962; 84484; 84703; 85025; 93005; 96361; 96365; 96372; 96375; 99284; J0360; J0610; J1815; J7030